=== PATIENT | male | born 1930 | race Caucasian/White ===

== ENCOUNTER 2016-12-31 03:42 | Inpatient (IN) | payer OTHER ==
[~2016-12-31] VITALS: Ht 167.6 cm; Wt 74.8 kg
--- NOTE | 2016-12-31 03:46 | ED CARDIAC/CP/PALPITATIONS ---
History of Present Illness General Chief Complaint: Chest Pain Stated Complaint: BIBA CP Source: patient, family Exam Limitations: no limitations Vital Signs & Intake/Output Vital Signs & Intake/Output Vital Signs Date Time Temp Pulse Resp B/P B/P Pulse O2 O2 Flow FiO2 Mean Ox Delivery Rate 12/317 69 18 125/65 98 Nasal 2.0L Cannula 12/31 413 Room Air 12/31 0345 96.6 74 18 161/74 96 Room Air Allergies Uncoded Allergies: Allergy Other NKA Reconcile Medications Aspirin (Aspirin*) 81 MG TAB.CHEW 1 TAB PO DAILY HEART (Reported) Lovastatin 40 MG TABLET 1 TAB PO DAILY CHOLESTEROL (Reported) with food Triage Nurses Notes Reviewed? yes Onset: Abrupt Duration: hour(s):, waxing and waning Timing: recent history Quality/Severity: moderate Location: central Radiation: no radiation Activities at Onset: sleep Prior Chest Pain/Card Workup: no prior chest pain Modifying Factors: Improves With: nitroglycerin, rest. Nitro Today/Relief: 0.4 mg x 1, provided by EMS Aspirin Today: 81 mg x 4, provided at home Associated Symptoms: chest pain HPI: 86-year-old gentleman history of hypertension, and prior good health presents with 1 hour history of substernal chest pain which she describes as being 7 out of 10, nonradiating, without diaphoresis or syncopal type symptoms. He notes, "I sat there and the pain felt different from anything I've ever felt before. I felt like something was wrong so I called my family." He took 4 baby aspirins prior to the ambulance arriving. The medics share that he received one spray of nitroglycerin which reduced his pain from a 7 out of 10 to a 5 out of 10. Past History Travel History Traveled to [place] past 21 day No Medical History Any Pertinent Medical History? see below for history Cardiovascular: NONE, hypertension Pneumonia Vaccine: 08/28/05 Influenza Vaccine: 05/28/11 Surgical History Surgical History: none Psychosocial History What is your primary language Rwandan Tobacco Use: Quit >30 days ago ETOH Use: denies use Family History Hx Contributory? No Review of Systems Review of Systems Constitutional: Reports: no symptoms. EENTM: Reports: no symptoms. Respiratory: Reports: no symptoms. Cardiovascular: Reports: no symptoms. GI: Reports: no symptoms. Genitourinary: Reports: no symptoms. Musculoskeletal: Reports: no symptoms. Skin: Reports: no symptoms. Neurological/Psychological: Reports: no symptoms. Hematologic/Endocrine: Reports: no symptoms. Immunologic/Allergic: Reports: no symptoms. All Other Systems: Reviewed and Negative Physical Exam Physical Exam General Appearance: well developed/nourished, mild distress Head: atraumatic, normal appearance Eyes: Bilateral: normal appearance. Ears, Nose, Throat: normal pharynx, normal ENT inspection Neck: normal inspection, supple, full range of motion Respiratory: normal breath sounds, chest non-tender, no respiratory distress, quiet respiration, lungs clear Cardiovascular: regular rate/rhythm, edema Gastrointestinal: normal bowel sounds, soft, non-tender, no organomegaly Rectal: normal exam, normal rectal tone, heme negative stool Back: normal inspection, normal range of motion Extremities: normal inspection, normal capillary refill, normal range of motion, no edema Neurologic/Psych: no motor/sensory deficits, awake, alert, oriented x 3 Skin: intact, normal color, warm/dry Core Measures ACS in differential dx? No Severe Sepsis Present: No Septic Shock Present: No Progress Differential Diagnosis: AMI, unstable angina vs other. Plan of Care: Orders Procedure Date/time Status D-DIMER 12/31 409 Active EKG 12/31 350 Active TROPONIN LEVEL 12/31 345 Complete PARTIAL THROMBOPLASTIN TIME 12/31 345 Active PROTHROMBIN TIME 12/31 345 Active COMPREHENSIVE METABOLIC PANEL 12/31 345 Complete CBC WITHOUT DIFFERENTIAL 12/31 345 Complete B-TYPE NATRIURETIC PEP (BNP) 12/31 345 Complete Current Medications Sig/Parviz Start time Last Medication Dose Stop Time Status Admin Aspirin 325 MG ONCE ONE 12/31 529 UNVr (Aspirin) 12/31 530 Clopidogrel Bisulfate 300 MG ONCE ONE 12/31 529 UNVr (Plavix) 12/31 530 Heparin Sodium 25,000 UNIT Q24H 12/31 529 UNVr (Porcine) (Heparin) Sodium Chloride 500 ML Heparin Sodium 4,000 UNIT ONCE ONE 12/31 529 UNVr (Porcine) 12/31 530 (Heparin Bolus) Laboratory Tests 12/31/16 0410: Anion Gap 14, Estimated GFR > 60, BUN/Creatinine Ratio 15.6, Glucose 113 H, Calcium 9.0, Total Bilirubin 0.6, AST 17, ALT 35, Alkaline Phosphatase 65, Troponin I 0.11 *H, Byy-L-Bsneoanoiky Pept 642 H, Total Protein 6.6, Albumin 4.1, Globulin 2.5, Albumin/Globulin Ratio 1.6, PT 11.3, INR 1.08, APTT 35, D- Dimer Pending, CBC w Diff NO MAN DIFF REQ, RBC 5.41, MCV 87.1, MCH 28.9, RDW 13.4, MPV 9.7, Gran % 66.7, Lymphocytes % 22.1, Monocytes % 7.2, Eosinophils % 3.0, Basophils % 1.0, Absolute Granulocytes 4.0, Absolute Lymphocytes 1.3, Absolute Monocytes 0.4, Absolute Eosinophils 0.2, Absolute Basophils 0.1, PUBS MCHC 33.1 12/31/16 0352: D-Dimer Cancelled Diagnostic Imaging: Viewed by Me: Radiology Read. Discussed w/RAD: Radiology Read. CXR Impression: atelectasis vs infiltrate... full report below. Initial ED EKG: RBBB, no acute changes Comments: PATIENT: PATRICIA TRAORE PRESENT AGE: 86 PATIENT ACCOUNT NO: [id number] : 31 LOCATION: [facility] ORDERING PHYSICIAN: MEDHAT CAMPOS MD SERVICE DATE: 12/31/16 EXAM TYPE: RAD - XRY-PORTABLE CHEST XRAY EXAMINATION: XR PORTABLE CHEST CLINICAL INFORMATION: Chest pain COMPARISON: 07/31/2015 TECHNIQUE: Portable frontal view of the chest was obtained. FINDINGS: Right hemidiaphragm elevation and volume loss in the right hemithorax is again demonstrated. Right basilar opacification appears increased from prior. Suture lines are noted in the mid right hemithorax. There is mild hazy opacity at the left lung base. No pneumothorax is seen. No definite pleural effusion. Cardiac size appears within normal limits for technique. Calcification is present at the aortic arch. No acute osseous findings are seen. IMPRESSION: Redemonstrated volume loss in the right hemithorax. Right basilar opacification appears increased compared to prior and may reflect atelectasis or potentially developing consolidation. Mild hazy left basilar opacity is also noted. DICTATED BY: BOB GARCIA MD DATE/TIME DICTATED:12/31/16457 BUTTER MELTER:MISA DATE/TIME TRANSCRIBED:12/31/16457 CONFIDENTIAL, DO NOT COPY WITHOUT APPROPRIATE AUTHORIZATION. <Electronically signed in Other Vendor System> SIGNED BY: BOB GARCIA MD 12/31/16 0504 Departure Departure Disposition: STILL A PATIENT Condition: Stable Clinical Impression Primary Impression: Elevated troponin Referrals: PEDRO ALEXANDER MD (PCP/Family) Departure Forms: Customer Survey General Discharge Information Admission Note Spoke With: BARBARA VILLANUEVA MD Documentation of Exam: Documentation of any treatments & extenuating circumstances including Concerns Regarding Discharge (functional status, medication knowledge or non-compliance, living conditions, etc.) that warrant an admission rather than observation: pt with elevated troponin... now chest pain free after nitro... pt merits admission, possible cath. pt stable for tele Critical Care Note Critical Care Note Critical Care Time: 30-74 min
--- NOTE | 2016-12-31 03:54 | NUR ---
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 PT DENIES SOB, DENIES DIAPHORESIS. STATES PAIN RADIATES TO L ARM. PT REPORTS 7/10 CP THAT WAS RELIEVED TO 4/10 WITH 325MG ASA AND 1 SL NITRO. PT ALSO REPORTS ?MS A FEW YEARS BACK PER PCP. AT BEDSIDE FOR EVAL.
--- NOTE | 2016-12-31 03:58 | NUR ---
NTG SL GIVEN.
--- NOTE | 2016-12-31 04:11 | NUR ---
LABS SENT (1SST,1LAV,1BLUE)
[2016-12-31] MEDS ORDERED: LOVASTATIN40 M1 PO (04:12)
[2016-12-31] MEDS ORDERED: ASPIRIN81 M4 PO (04:13)
--- NOTE | 2016-12-31 04:17 | NUR ---
PT DENIES ANY CP AFTER 1 SL NITRO. BP 125/65. MD CAMPOS AWARE.
[2016-12-31 04:22] LABS: ABSOLUTE BASOPHIL COUNT 0.1 /CUMM (0.0-0.2); ABSOLUTE EOSINOPHIL COUNT 0.2 /CUMM (0.0-0.7); ABSOLUTE LYMPH COUNT 1.3 /CUMM (1.2-3.4); ABSOLUTE MONOCYTE COUNT 0.4 /CUMM (0.10-0.60); GRANULOCYTE % 66.7 % (42.2-75.2); HEMATOCRIT 47.1 % (42-52); MEAN CORPUSCULAR HGB 28.9 PG (27.0-31.0); MEAN CORPUSCULAR HGB CONC 33.1 G/DL (33.0-37.0); MEAN CORPUSCULAR VOLUME 87.1 FL (80.0-94.0); MEAN PLATELET VOLUME 9.7 FL (7.4-10.4); PLATELET COUNT 129 /CUMM (130-400); RBC DISTRIBUTION WIDTH 13.4 % (11.5-14.5); RED BLOOD CELL CT 5.41 /CUMM (4.70-6.10); WHITE BLOOD CELL COUNT 6.1 /CUMM (4.8-10.8)
[2016-12-31 04:31] LABS: PT 11.3 SEC (9.4-12.5); PTT 35 SEC (25-37)
--- NOTE | 2016-12-31 04:59 | NUR ---
CRITICAL TEST RESULTS [id number] PATRICIA TRAORE 86 M TESTS AND RESULTS: TROP = 0.11 Results received and read back by: CHRISTIE MADDOX Results received date and time: 12/31/16 0459 The following provider was notified of the results, and read the results back: DR CAMPOS Notified date and time: 12/31/16 at 0500
--- NOTE | 2016-12-31 05:04 | RADIOLOGY REPORT ---
EXAMINATION: XR PORTABLE CHEST CLINICAL INFORMATION: Chest pain COMPARISON: 07/31/2015 TECHNIQUE: Portable frontal view of the chest was obtained. FINDINGS: Right hemidiaphragm elevation and volume loss in the right hemithorax is again demonstrated. Right basilar opacification appears increased from prior. Suture lines are noted in the mid right hemithorax. There is mild hazy opacity at the left lung base. No pneumothorax is seen. No definite pleural effusion. Cardiac size appears within normal limits for technique. Calcification is present at the aortic arch. No acute osseous findings are seen. IMPRESSION: Redemonstrated volume loss in the right hemithorax. Right basilar opacification appears increased compared to prior and may reflect atelectasis or potentially developing consolidation. Mild hazy left basilar opacity is also noted.
--- NOTE | 2016-12-31 05:54 | NUR ---
PT MEDICATED WITH ASPIRIN,PLAVIX AND HEPARIN GTT INITIATED PER EMAR. RECTAL EXAM DONE BY MD MEMBRENO GUAIC NEGATIVE.
--- NOTE | 2016-12-31 06:26 | NUR ---
HOUSE STAFF AT BEDSIDE TO JEZ
--- NOTE | 2016-12-31 06:32 | NUR ---
PT C/O NAUSEA, MEDICATED WITH IV ZOFRAN PER EMAR. NO VOMITING.
--- NOTE | 2016-12-31 06:36 | History & Physical ---
JAZMIN MAGALLON,[facility] 12/31/16 0635: General Information and HPI MD Statement: I have seen and personally examined PATRICIA TRAORE and documented this H&P. The patient is a 86 year old M who presented with a patient stated chief complaint of [chest pain]. Source of Information: patient, family Exam Limitations: no limitations History of Present Illness: Mr. Traore is 86 year old male with past medical history significant for hyperlipidemia, GERD, lung nodule s/p partial lobectomy with chief complaint of chest pain. Patient reported that around 2 AM this morning he woke up with retrosternal pressure pain that is 10/10, radiate to left arm, associated with shortness of breath, denied diaphoresis, palpitation, nausea, lightheadedness. Patient instantly called his son and was brought to ED by ambulance for evaluation. Patient took 4 tabs of aspirin 81 mg prior to disposition. History of taking lovastatin 40 mg for almost 2 months, as prescribed by his primary care physician after last annual physical. Patient denied any recent illness, cough, palpitation, nasal congestion, abdominal pain, nausea or vomiting, diarrhea or constipation, dysuria. Patient has no recent hospitalization. Patient is a former smoker, quit 50 years ago. Allergies/Medications Home Med list Aspirin (Aspirin*) 81 MG TAB.CHEW 1 TAB PO DAILY HEART (Reported) Lovastatin 40 MG TABLET 1 TAB PO DAILY CHOLESTEROL (Reported) with food Past History Travel History Traveled to [place] past 21 day No Medical History Cardiovascular: NONE, hypertension Surgical History Surgical History: none Past Family/Social History Psychosocial History ETOH Use: denies use Review of Systems Review of Systems Constitutional: Reports: see HPI. Exam & Diagnostic Data Last 24 Hrs of Vital Signs/I&O Vital Signs Date Time Temp Pulse Resp B/P B/P Pulse O2 O2 Flow FiO2 Mean Ox Delivery Rate 12/31 0417 69 18 125/65 98 Nasal 2.0L Cannula 12/31 0414 Room Air 12/31 0345 96.6 74 18 161/74 96 Room Air Intake & Output 12/31 0800 12/31 0000 12/30 1600 Intake Total 0 Output Total Balance 0 Intake, Oral 0 Patient 74.843 kg Weight Physical Exam General Appearance Alert, Oriented X3, Cooperative, No Acute Distress Skin No Rashes, No Breakdown, No Significant Lesion Skin Temp/Moisture Exam: Warm/Dry HEENT Atraumatic, PERRLA, EOMI, Mucous Membr. moist/pink Neck Supple, No JVD Lymphatic no cervical lymphadenopathy Cardiovascular Regular Rate, Normal S1, Normal S2, systolic murmur 3/5 with maximum intensity at RIS , ectopic beat Lungs Clear to Auscultation, Normal Air Movement Abdomen Normal Bowel Sounds, Soft, No Tenderness Neurological Normal Gait, Normal Speech, Strength at 5/5 X4 Ext, Normal Tone, Sensation Intact, Cranial Nerves 3-12 NL, Reflexes 2+ Extremities No Clubbing, No Cyanosis, No Edema, Normal Pulses Assessment/Plan Assessment: Mr. Traore is 86 year old male with past medical history significant for hyperlipidemia, GERD, lung nodule s/p partial lobectomy with chief complaint of chest pain. On admission Vital signs temperature 96.6, heart rate 74, blood pressure 161/74, RR 18, saturating 96% on room air labs WBC 6.1, platelet 129, H&H 15.6/47.1, sodium 142, potassium 3.9, glucose 113, troponin 0.11, proBNP 642, d-dimer negative CXR IMPRESSION: Redemonstrated volume loss in the right hemithorax. Right basilar opacification appears increased compared to prior and may reflect atelectasis or potentially developing consolidation. Mild hazy left basilar opacity is also noted. EKG rate 70, RBBB, nonspecific ST/T changes, QTc 475 Problem list #CAD Elevated troponin, nonspecific ST/T changes and EKG #Hyperlipidemia Plan -Admit to telemetry for close monitoring -Serial troponin and EKG -Nitroglycerin As needed for chest pain -Continue aspirin -Continue heparin drip -Continue atorvastatin 80 mg daily -Nothing by mouth for possible cath today -DVT prophylaxis heparin drip -Code full As Ranked By This Provider Problem List: 1. Elevated troponin Core Measures/Miscellaneous Acute Coronary Syndrome ACS Diagnosis: No Cerebrovascular Accident CVA/TIA Diagnosis: No Congestive Heart Failure CHF Diagnosis: No Venous Thromboembolism VTE Risk Factors: Age > 40 [facility] prophylaxis d/t: No contraindications No VTE Pharm Prophylaxis d/t: No contraindications VTE Diagnosis: No VTE Type: NONE VTE Confirmed by (Test): NONE Severe Sepsis Severe Sepsis Present: No Septic Shock Septic Shock Present: No Miscellaneous Documentation Attending Case Discussed With: RICH MAGALLON PhD,JOCELYN Mcfadden Primary Care Physician: PEDRO ALEXANDER MD Patient sees these Specialists PCP Level of Patient Care: Telemetry JAK ORDAZ 12/31/16 0707: Resident Review Statement Resident Statement: examined this patient, discussed with supply chain intern, agreed with supply chain intern, amended to note Other Findings: 86 year old man with PMh of HLP, GERD, hip replacement ,abnormal EKG,lung nodule s/p partial lobectomy came to ED with cc of chest pain. He reported that at 2 AM this morning he woke up with severe mediastinal pressure-like chest pain at least 8 out of 10 which lasted more than 30 minutes associated with mild shortness of breath but no nausea or vomiting or dizziness or palpitations, radiating to the left arm He called his son and he came to the hospital. patient reports had the mild similar episode about couple of days ago which spontaneously resolved. Denies any recent fever, chills, cough, abdominal pain, nausea, vomiting. He doesn't have any history of [place]/stroke. Vital signs on admission were stable. he was alert and oriented, lungs were clear, atraumatic head, PERRLA, S1-S2 normal with 3/6murmur possibly , abdominal exam unremarkable, no lower extremity edema CXR was unremarkable Labs are notable for platelets of 129, troponin of 0.11 EKG shows sinus rhythm, 70, QTC 475, RBBB, nonspecific ST-T changes(ST depressions in V2 and V3) Assessment and plan #NSTEMI -Admit to telemetry -NPO for possible cardiac cath -EKG and troponin 3 -IV heparin -Patient received aspirin 325 and Plavix loading dose -Continue aspirin for now -Start high dose statin therapy -Sublingual nitroglycerin for chest pain -Gentle IV hydration -Echocardiogram in the morning -Cardiology discussed with Dr. De Los Santos/ DR MALDONADO WILL SEE THE PATIENT -low dose metoprolol Full code for now (patient has a living will which says DNR), Tylenol and nitroglycerin for pain, DVT prophylaxis mechanical and IV heparin,NPO ALBINO MALDONADO MD 12/31/16 1100: General Information and HPI Allergies/Medications Allergies: Coded Allergies: No Known Allergies (12/31/16) Past Family/Social History Family History Relations & Conditions if any SISTER Myocardial infarction Attending MD Review Statement Attending Statement Attending MD Statement: examined this patient, discuss w/resident/PA/NUCLEAR MEDICAL TECHNOLOGIST, agreed w/resident/PA/NUCLEAR MEDICAL TECHNOLOGIST, discussed with family, reviewed EMR data (avail), discussed with nursing, reviewed images, amended to note Attending Assessment/Plan: The patient is an 86-year-old male with history of hyperlipidemia, GERD, and partial lobectomy who is admitted with non-ST elevation myocardial infarctions. The patient was feeling well when he went to sleep at midnight last night. At 2 :00 AM, he awoke with substernal chest pressure which was a 10 out of 10, radiating to the neck at times. EMS was called. He was given several nitroglycerin glycerin and handles with partial improvement in the chest discomfort. Upon arrival in the emergency department the discomfort began to get worse and he was treated with a second sublingual nitroglycerin motion. His discomfort subsequently resolved, and he is now pain-free. He reports that he had 3 or 4 other recent episodes of chest discomfort for which she did not seek medical attention. He has never seen a instrument maintenance supervisor, however he requests to follow up with his son's instrument maintenance supervisor, Dr. Thapa in [place]. Review of systems: No fever. No chills. No rash. No tremor. No melena. All other systems were reviewed, and were noted to be negative. Vital Signs Date Time Temp Pulse Resp B/P B/P Pulse O2 O2 Flow FiO2 Mean Ox Delivery Rate 12/31 1044 64 144/70 / 0850 97.8 70 14 144/70 97 Room Air / 0706 97.0 80 18 133/75 97 Room Air / 0417 69 18 125/65 98 Nasal 2.0L Cannula 12/31 0414 Room Air / 0345 96.6 74 18 161/74 96 Room Air Physical examination: Gen: The patient is in no acute distress HEENT: Normal nose, ears, and oropharynx. Pupils equal bilaterally. Conjunctiva normal. Neck: Supple with no JVD, no masses, and no thyromegaly Lungs: Clear to auscultation with normal respiratory effort Heart: RRR, S1, S2, no murmurs. No peripheral edema, 2+ pulses in the lower extremities bilaterally Abdomen: Soft, nontender, no masses. No hepatomegaly. No splenomegaly Extremities: No clubbing or cyanosis. Normal muscle strength in the upper and lower extremities Skin: Normal skin turgor with no skin ulcers or lesions noted. Neuro: Cranial nerves intact. Sensation intact Psych: Alert and oriented 3 with appropriate affect Laboratory Tests 12/31 12/31 12/31 1000 0410 0352 Chemistry Sodium (137 - 145 mmol/L) 142 Potassium (3.5 - 5.1 mmol/L) 3.9 Chloride (98 - 107 mmol/L) 105 Carbon Dioxide (22 - 30 mmol/L) 23 Anion Gap (5 - 16) 14 BUN (9 - 20 mg/dL) 14 Creatinine (0.7 - 1.2 mg/dL) 0.9 Estimated GFR (>60 ml/min) > 60 BUN/Creatinine Ratio (7 - 25 %) 15.6 Glucose (65 - 99 mg/dL) 113 H Calcium (8.4 - 10.2 mg/dL) 9.0 Magnesium (1.6 - 2.3 mg/dL) 2.0 Total Bilirubin (0.2 - 1.3 mg/dL) 0.6 AST (17 - 59 U/L) 17 ALT (21 - 72 U/L) 35 Alkaline Phosphatase (< 127 U/L) 65 Troponin I (<0.11 ng/ml) 4.99 *H 0.11 *H Fvi-C-Yxrhyabkqdi Pept (<125 pg/mL) 642 H Total Protein (6.3 - 8.2 g/dL) 6.6 Albumin (3.5 - 5.0 g/dL) 4.1 Globulin (1.9 - 4.2 gm/dL) 2.5 Albumin/Globulin Ratio (1.1 - 2.2 %) 1.6 Triglycerides (<150 mg/dL) 67 Cholesterol (< 200 MG/DL) 134 LDL Cholesterol, Calc (65 - 129 mg/dL) 62 L HDL Cholesterol (40 - 60 mg/dL) 59 Cholesterol/HDL Ratio (0.00 - 4.88 %) 2 Coagulation PT (9.4 - 12.5 SEC) 11.3 INR (0.90 - 1.17) 1.08 APTT (25 - 37 SEC) 35 D-Dimer (70 - 232 ng/ml) < 200 Cancelled Hematology CBC w Diff NO MAN DIFF REQ WBC (4.8 - 10.8 /CUMM) 6.1 RBC (4.70 - 6.10 /CUMM) 5.41 Hgb (14.0 - 18.0 G/DL) 15.6 Hct (42 - 52 %) 47.1 MCV (80.0 - 94.0 FL) 87.1 MCH (27.0 - 31.0 PG) 28.9 RDW (11.5 - 14.5 %) 13.4 Plt Count (130 - 400 /CUMM) 129 L MPV (7.4 - 10.4 FL) 9.7 Gran % (42.2 - 75.2 %) 66.7 Lymphocytes % (20.5 - 51.1 %) 22.1 Monocytes % (1.7 - 9.3 %) 7.2 Eosinophils % (0 - 5 %) 3.0 Basophils % (0.0 - 2.0 %) 1.0 Absolute Granulocytes (1.4 - 6.5 /CUMM) 4.0 Absolute Lymphocytes (1.2 - 3.4 /CUMM) 1.3 Absolute Monocytes (0.10 - 0.60 /CUMM) 0.4 Absolute Eosinophils (0.0 - 0.7 /CUMM) 0.2 Absolute Basophils (0.0 - 0.2 /CUMM) 0.1 PUBS MCHC (33.0 - 37.0 G/DL) 33.1 05/06 0200 Chemistry Troponin I Cancelled Chest x-ray: Redemonstrated volume loss in the right hemithorax. Right basilar opacification appears increased compared to prior and may reflect atelectasis or potentially developing consolidation. Mild hazy left basilar opacity is also noted. EKG tracing is independently reviewed, and reveals normal sinus rhythm at 63, premature atrial complex, right bundle-branch block Echocardiogram: Moderate concentric left ventricular hypertrophy. Normal left ventricular ejection fraction visually estimated at >65 No obvious regional wall motion abnormalities. Abnormal relaxation filling pattern of the left ventricle for age (stage 1 diastolic dysfunction). The left atrium is normal in size. There is mild thickening of the mitral valve leaflets and mild calcification of the mitral annulus posteriorly. There is mild mitral regurgitation. Diffuse thickening of the aortic valve cusps with reduced excursion. Mild aortic stenosis. Mild aortic stenosis. Pulmonary artery systolic pressure is normal. Assessment: 1. Acute NSTEMI 2. Hyperlipidemia Plan: * IV heparin per protocol * Increase metoprolol to 12.5 mg po bid * Aspirin 325 mg po x 1 and then 81 mg daily * Brilinta 180 mg po x 1 followed by 90 mg po bid * Discontinue clopidogrel * Echocardiogram * Transfer for cardiac catheterization Monday. The patient's family requests that he be transferred to Dr. Thapa at [facility]
--- NOTE | 2016-12-31 06:43 | NUR ---
PER SUPERVISIOR PT CAN GO TO ICU OVERFLOW AFTER 0700.
--- NOTE | 2016-12-31 06:53 | NUR ---
PHARMACY CALLED FOR MEDICATION. PER PHARMACIST MER HE WILL BRING UP MED.
--- NOTE | 2016-12-31 06:54 | NUR ---
PT BED ASSIGNMENT 105
--- NOTE | 2016-12-31 07:35 | NUR ---
REPORT GIVEN TO [facility]ILLY [facility]OPE[facility] ICU. PT WILL BE TELE OVERFLOW. FILLER SHREDDING MACHINE LOADER WILL CALL DOWN WHEN BED IS READY.
[2016-12-31 08:50] VITALS: BP 144/70
--- NOTE | 2016-12-31 08:50 | Event Note ---
Event Note Event Note: MERARY snuff packing machine operator [facility]
--- NOTE | 2016-12-31 11:31 | Patient Discharge Instructions ---
Discharge Instructions General Discharge Information You were seen/treated for: NSTEMI Special Instructions: Patient is being transfered to cardiac cath. 1. Please follow-up with your regular doctor after discharge 2. Please follow-up with your real estate salesperson after discharge Diet Recommended Diet: Heart Healthy Activity Full Activity/No Limits: No Acute Coronary Syndrome Inclusion Criteria At DC or during hospital stay patient has or had the following: ACS DIAGNOSIS Yes Discharge Core Measures Meds if any: Prescribed or Continued at Discharge Aspirin Yes Beta-Kash Yes Statin Yes Meds if any: NOT Prescribed or Continued at Discharge Congestive Heart Failure Inclusion Criteria At DC or during hospital stay patient has or had the following: CHF DIAGNOSIS No Discharge Core Measures Meds if any: Prescribed or Continued at Discharge Meds if any: NOT Prescribed or Continued at Discharge Cerebrovascular accident Inclusion Criteria At DC or during hospital stay patient has or had the following: CVA/TIA Diagnosis No Discharge Core Measures Meds if any: Prescribed or Continued at Discharge Meds if any: NOT Prescribed or Continued at Discharge Venous thromboembolism Inclusion Criteria VTE Diagnosis No VTE Type NONE VTE Confirmed by (Test) NONE Discharge Core Measures - Per Current guidelines, there needs to be overlap - treatment for the first 5 days of Warfarin therapy. - If discharged on Warfarin prior to 5 days of - overlap therapy, the patient will need to be - assessed for post discharge needs including - *Post discharge parental anticoagulation - *Warfarin and/or parental anticoagulation education - *Follow up date to check INR post discharge At least 5 days overlap therapy as Inpatient No Meds if any: Prescribed or Continued at Discharge Note: Overlap Therapy is Warfarin and Anticoagulant Meds if any: NOT Prescribed or Continued at Discharge
--- NOTE | 2016-12-31 11:32 | Discharge Summary ---
See Addendum Visit Information Visit Dates Admission Date: 12/31/16 Discharge Date: 12/31/16 Hospital Course Course Attending Physician: RICH MAGALLON PhD,JOCELYN Mcfadden Primary Care Physician: CATHERINE MAGALLON,[facility] Course: Patient is 86 year old man with PMH of HLD, GERD, hip replacement, lung nodule s /p partial lobectomy was brought to ED with chief complain of Chest pain. He reported that at 2 AM on 12/31/16 he woke up with severe mediastinal pressure-like chest pain at least 8 out of 10 which lasted more than 30 minutes associated with mild shortness of breath but no nausea or vomiting or dizziness or palpitations, radiating to the left arm He called his son and he came to the hospital. Patient reports had the mild similar episode about couple of days ago which spontaneously resolved. Denies any recent fever, chills, cough, abdominal pain, nausea, vomiting. He doesn't have any history of [place]/stroke. Vital signs on admission were stable. He was alert and oriented Lungs were CTA Atraumatic head, PERRLA, S1-S2 normal with 3/6murmur possibly , Abdominal exam unremarkable, no lower extremity edema, peripheral pulses intact CXR was unremarkable Labs are notable for platelets of 129, troponin of 0.11 later 4.99 EKG shows sinus rhythm, 70, QTC 475, RBBB, nonspecific ST-T changes(ST depressions in V2 and V3) Pateint was admitted to telemetry floor for NSTEMI. Patient got loading dose of aspirin, and was started on Metoprolol, high dose statin and Heprin drip. Serial troponins and ekg was ordered. Billing Supervisor Dr. Baker was on board. Patient was continued on Sublingual nitroglycerine for CP. Patient was continued on Heprin drip, last troponin was 7.73 and patient is goinf for cardiac cath in [place] with Dr. Osman. Dvt ppx IV heprin Patient is Full code Allergies: Coded Allergies: No Known Allergies (12/31/16) Disposition Summary Disposition Principal Diagnosis: NSTEMI Additional Diagnosis: As above Discharge Disposition: other general hospital Discharge Instructions General Discharge Information Code Status: Full Code Patient's Diet: heart healthy but npo before cath Patient's Activity: as tolerated Follow-Up Instructions/Appts: Patient will be ransfered for cardiac cath Medications at Discharge Discharge Medications: Continue taking these medications: Lovastatin (Lovastatin) 40 MG TABLET 1 Tablet ORAL DAILY Qty = 90 Instructions: with food Aspirin (Aspirin*) 81 MG TAB.CHEW 1 Tablet ORAL DAILY Start taking the following new medications: Nitroglycerin (Nitrostat) 0.3 MG TAB.SUBL 0.4 Milligram SUBLINGUAL EVERY 5 MINUTES X 3 DOSES as needed for CHEST PAIN Qty = 30 No Refills Metoprolol Tartrate (Metoprolol Tartrate) 25 MG TABLET 12.5 Milligram ORAL TWICE DAILY Qty = 30 No Refills Ticagrelor (Brilinta) 90 MG TABLET 1 Tablet ORAL TWICE DAILY Qty = 30 No Refills Heparin (Heparin-1/2NS 25,000 Units/500) 25,000 UNIT/500 ML (50 UNIT/ML) IV.SOLN 25,000 Units INTRAVEN CONTINOUS Qty = 1 No Refills Instructions: HELD FOR CATH Copies To: ERICA MAGALLON,ALBINO
[2016-12-31 13:33] LABS: PTT 103 SEC (25-37)
--- NOTE | 2016-12-31 15:57 | NUR ---
LATE ENTRY ADMISSION NOTE-PATIENT ARRIVED TO ROOM 105 AT 0850, HEPARIN GTT INFUSING AT 12 UNITS/KG/HR OR 18 MLS/HR VIA #20 LW,1BAG OF BELONGINGS CONSISTING OF JACKET, SLIPPERS, SLEEP PANTS, AND SHIRT, GLASSES ON PATIENT, UPPER AND LOWER DENTURES IN PATIENTS MOUTH, PATIENT PLACED ON ICU BED AND TELE MONITOR, DENIES CP, NAUSEA, A&OX3,AFEBRILE,NEWMAN, NSR 70, BBB,PVC,PAC, BP 144/70, POSITIVE PULSES, RA 97% CLEAR NO SOB, ABD. SOFT + B.S, NPO CHANGED TO H/H DIET AFTER DR. MAR CONSULT, CLEAR YELLOW URINE VOIDS IN URINAL LFA # 20 IV PLACED, PRE HOSPITAL AC IV NOT PATENT REMOVED, NS STARTED AT 50MLS/HR X 1 BAG PER ORDER, 1000 REPEAT TROPONIN 4.99, NEXT TROPONIN DUE AT 1600 1200 PTT 103 ADJUSTED HEPARIN PER PROTOCOL TO 8UNITS/KG/HR OR 12 MLS/HR NEXT PTT DUE AT 2030,
[2016-12-31 16:00] VITALS: BP 150/70
[2016-12-31 23:07] LABS: PTT 45 SEC (25-37)
--- NOTE | 2016-12-31 23:12 | NUR ---
PT REMAINS ALERT AND ORIENTED. VSS STATES HIS PAIN IS A 0. OFFERED NO COMPLAINTS. FAMILY AT [facility] PROVIDING SUPPORT. OF NOTE, PT'S FAMILY WANTS PT TO BE CATHED AT [facility] ON MONDAY. DR. JEREZ IS PHYSICIAN. DR SALAZAR IS PEN TESTER PHYSICIAN AT [facility]. HE WILL BE THE RECEIVING MD. SHOE CUTTER ONOFRE HAD PT SIGN TRANSFER FORMS. REPORT AND ABOVE INFORMATION GIVEN TO JASON.
[2017-01-01] VITALS: BP 114/70
--- NOTE | 2017-01-01 04:32 | NUR ---
PT DID NOT C/O CHEST PAIN THE WHOLE NIGHT. SLEPT VERY LITTLE PT STATED, HEPARIN GTT CONTINUED. NSR 60'S-70'S.
[2017-01-01 04:53] LABS: ABSOLUTE BASOPHIL COUNT 0.1 /CUMM (0.0-0.2); ABSOLUTE EOSINOPHIL COUNT 0.2 /CUMM (0.0-0.7); ABSOLUTE GRANULOCYTE CT 3.4 /CUMM (1.4-6.5); ABSOLUTE MONOCYTE COUNT 0.5 /CUMM (0.10-0.60); BASOPHIL % 1.1 % (0.0-2.0); EOSINOPHIL % 4.3 % (0-5); GRANULOCYTE % 65.8 % (42.2-75.2); HEMATOCRIT 44.5 % (42-52); MEAN CORPUSCULAR HGB 28.8 PG (27.0-31.0); MEAN CORPUSCULAR HGB CONC 32.8 G/DL (33.0-37.0); MEAN CORPUSCULAR VOLUME 87.9 FL (80.0-94.0); MEAN PLATELET VOLUME 9.9 FL (7.4-10.4); PLATELET COUNT 115 /CUMM (130-400); RBC DISTRIBUTION WIDTH 13.2 % (11.5-14.5); RED BLOOD CELL CT 5.06 /CUMM (4.70-6.10); WHITE BLOOD CELL COUNT 5.2 /CUMM (4.8-10.8)
[2017-01-01 05:04] LABS: PTT 51 SEC (25-37)
[2017-01-01 08:00] VITALS: BP 122/64
--- NOTE | 2017-01-01 08:01 | PN- Housestaff ---
Subjective Follow-up For: NSTEMI Tele-Events Since Last Visit: No Events Subjective: Mr Gunderson was seen and examined this morning. He is resting comfortably on the chair beside his bed. Patient states that he is currently no pain. He has been ambulating over the course of the morning with no symptomatic manifestations. He is currently awaiting visitation of his family to decide on further transfers for catheterization. He denies any fever, chills, nausea, vomiting. Review of Systems Constitutional: Reports: see HPI. Objective Last 24 Hrs of Vital Signs/I&O Vital Signs Date Time Temp Pulse Resp B/P B/P Pulse O2 O2 Flow FiO2 Mean Ox Delivery Rate 01/01 1001 98.2 69 20 122/64 01/01 0800 98.2 69 20 122/64 96 Room Air 05 0000 95 Room Air 01/01 0000 98.1 68 20 114/70 95 Room Air / 2231 97.6 60 18 132/70 / 1600 97 Room Air Room Air 12/31 1600 97.6 68 16 150/70 97 Room Air Room Air Intake & Output 01/01 1600 01/01 0800 05/ 0000 Intake Total 582 1350 Output Total 650 700 Balance -68 650 Intake, IV 482 750 Intake, Oral 100 600 Number 1 Bowel Movements Output, Urine 650 700 Physical Exam General Appearance: Alert, Oriented X3, Cooperative Lymphatic: Axillary nl Cardiovascular: Regular Rate, Normal S1, Normal S2 Lungs: Clear to Auscultation Abdomen: Normal Bowel Sounds, Soft, No Tenderness Neurological: Normal Gait, Normal Speech, Strength at 5/5 X4 Ext Extremities: No Clubbing, No Cyanosis, No Edema Current Medications: Current Medications Sig/Parviz Start time Last Medication Dose Route Stop Time Status Admin Acetaminophen 650 MG Q6P PRN 12/31 0545 AC PO Aspirin 81 MG DAILY 01/01 1000 AC 01/01 PO 1000 Atorvastatin Calcium 80 MG 1000 01/01 1000 AC PO Atorvastatin Calcium 80 MG 1700 12/31 0545 DC 12/31 PO 0706 Heparin Sodium 2,245 UNIT ONCE ONE 01/01 630 DC (Porcine) IV 01/01 0631 Heparin Sodium 25,000 UNIT Q24H 12/31 0530 AC 01/01 (Porcine) IV 0601 Sodium Chloride 500 ML Metoprolol Tartrate 12.5 MG BID 12/31 2200 AC 01/01 PO 1001 Metoprolol Tartrate 6.25 MG BID 12/31 1000 DC 12/31 PO 1044 Multivitamins 1 TAB DAILY 12/31 1000 AC 01/01 PO 1000 Nitroglycerin 0.4 MG Q 5 MINUTES X 3 DO.. 12/31 0645 AC SL Sodium Chloride 1,000 ML Q20H 12/31 0730 DC 12/31 IV 01/01 0329 0917 Ticagrelor 90 MG BID 01/01 1000 AC 01/01 PO 1000 Ticagrelor 180 MG ONCE ONE 12/31 1415 DC 12/31 PO 12/31 1416 1447 Last 24 Hrs of Lab/Carlitos Results Last 24 Hrs of Labs/Mics: Laboratory Tests 01/01/17 1245: APTT Pending 01/01/17 0415: Anion Gap 8, Estimated GFR > 60, BUN/Creatinine Ratio 11.8, APTT 51 H, CBC w Diff NO MAN DIFF REQ, RBC 5.06, MCV 87.9, MCH 28.8, RDW 13.2, MPV 9.9, Gran % 65.8, Lymphocytes % 18.9 L, Monocytes % 9.9 H, Eosinophils % 4.3, Basophils % 1.1, Absolute Granulocytes 3.4, Absolute Lymphocytes 1.0 L, Absolute Monocytes 0.5, Absolute Eosinophils 0.2, Absolute Basophils 0.1, PUBS MCHC 32.8 L 12/31/16 2200: Troponin I 7.73 *H, APTT 45 H 12/31/16 1700: Troponin I 9.29 *H 12/31/16 1600: Troponin I Cancelled Assessment/Plan Assessment: Mr. Gunderson is 86 year old male with past medical history significant for hyperlipidemia, GERD, lung nodule s/p partial lobectomy with chief complaint of chest pain. On admission Vital signs temperature 96.6, heart rate 74, blood pressure 161/74, RR 18, saturating 96% on room air labs WBC 6.1, platelet 129, H&H 15.6/47.1, sodium 142, potassium 3.9, glucose 113, troponin 0.11, proBNP 642, d-dimer negative EKG rate at the time of admission, 70, RBBB, nonspecific ST/T changes, QTc 475 Problem list #CAD Elevated troponin, nonspecific ST/T changes and EKG #Hyperlipidemia Plan -Continue on telemetry for close monitoring -Serial troponin and EKG, till trend down, last troponin: 7.73 -Awaiting echo results -Nitroglycerin As needed for chest pain -Continue aspirin -Continue heparin drip -Continue atorvastatin 80 mg daily -Nothing by mouth from midnight. -Patient will be transferred to [facility] for catheterization on 01/02/2017. -DVT prophylaxis heparin drip -Code full Problem List: 1. Elevated troponin Pain Ratin Pain Location: No Pain Pain Goal: Remain pain free Pain Plan: Morphine PRN Tomorrow's Labs & Rationales: ICU Bundle
[2017-01-01 13:09] LABS: PTT 70 SEC (25-37)
--- NOTE | 2017-01-01 14:02 | PN- Cardiology ---
Subjective Subjective: The patient reports that he is feeling completely well. No further chest pain since admission. No shortness of breath. No palpitations. No diaphoresis. Objective Vital Signs and I&Os Vital Signs Date Time Temp Pulse Resp B/P B/P Pulse O2 O2 Flow FiO2 Mean Ox Delivery Rate 01/01 1001 98.2 69 20 122/64 / 0800 98.2 69 20 122/64 96 Room Air 05/ 0000 95 Room Air 05/ 0000 98.1 68 20 114/70 95 Room Air / 2231 97.6 60 18 132/70 12/31 1600 97 Room Air Room Air 12/31 1600 97.6 68 16 150/70 97 Room Air Room Air Intake & Output 01/01 1600 01/01 0800 01/01 0000 12/31 1600 12/31 0812/31 0000 Intake Total 582 1350 830 0 Output Total 650 700 800 Balance -68 650 30 0 Intake, IV 482 750 470 Intake, Oral 100 600 360 0 Number 1 0 Bowel Movements Output, Urine 650 700 800 Patient 165 lb 165 lb Weight Physical Exam: Gen: NAD HEENT: normal Lungs: clear to auscultation, normal resp. effort Heart: RRR, S1, S2, no murmurs Abdomen: Soft, nontender, no masses Extremities: No clubbing, cyanosis, or edema. Neuro: Alert and oriented x 3, cranial nerves intact Current Medications: Current Medications Sig/Parviz Start time Last Medication Dose Route Stop Time Status Admin Acetaminophen 650 MG Q6P PRN 12/31 0545 AC PO Aspirin 81 MG DAILY 01/01 1000 AC 01/01 PO 1000 Atorvastatin Calcium 80 MG 1000 01/01 1000 AC PO Atorvastatin Calcium 80 MG 1700 12/31 0545 DC 12/31 PO 0706 Heparin Sodium 2,245 UNIT ONCE ONE 01/01 630 DC (Porcine) IV 01/01 0631 Heparin Sodium 25,000 UNIT Q24H 12/31 0530 AC 01/01 (Porcine) IV 0601 Sodium Chloride 500 ML Metoprolol Tartrate 12.5 MG BID 12/31 2200 AC 01/01 PO 1001 Metoprolol Tartrate 6.25 MG BID 12/31 1000 DC 12/31 PO 1044 Multivitamins 1 TAB DAILY 12/31 1000 AC 01/01 PO 1000 Nitroglycerin 0.4 MG Q 5 MINUTES X 3 DO.. 12/31 0645 AC SL Sodium Chloride 1,000 ML Q20H 12/31 0730 DC 12/31 IV 01/01 0329 0917 Ticagrelor 90 MG BID 01/01 1000 AC 01/01 PO 1000 Ticagrelor 180 MG ONCE ONE 12/31 1415 DC 12/31 PO 12/31 1416 1447 Results Last 48 Hrs of Labs/Mics: Laboratory Tests 01/01/17 1245: APTT Pending 01/01/17 0415: Anion Gap 8, Estimated GFR > 60, BUN/Creatinine Ratio 11.8, APTT 51 H, CBC w Diff NO MAN DIFF REQ, RBC 5.06, MCV 87.9, MCH 28.8, RDW 13.2, MPV 9.9, Gran % 65.8, Lymphocytes % 18.9 L, Monocytes % 9.9 H, Eosinophils % 4.3, Basophils % 1.1, Absolute Granulocytes 3.4, Absolute Lymphocytes 1.0 L, Absolute Monocytes 0.5, Absolute Eosinophils 0.2, Absolute Basophils 0.1, PUBS MCHC 32.8 L 12/31/16 2200: Troponin I 7.73 *H, APTT 45 H 12/31/16 1700: Troponin I 9.29 *H 12/31/16 1600: Troponin I Cancelled 12/31/16 1400: Troponin I Cancelled 12/31/16 1200: APTT 103 *H 12/31/16 1000: Troponin I 4.99 *H 12/31/16 0410: Anion Gap 14, Estimated GFR > 60, BUN/Creatinine Ratio 15.6, Glucose 113 H, Calcium 9.0, Magnesium 2.0, Total Bilirubin 0.6, AST 17, ALT 35, Alkaline Phosphatase 65, Troponin I 0.11 *H, Fwr-[id number] Pept 642 H, Total Protein 6.6, Albumin 4.1, Globulin 2.5, Albumin/Globulin Ratio 1.6, Triglycerides 67, Cholesterol 134, LDL Cholesterol, Calc 62 L, HDL Cholesterol 59, Cholesterol/ HDL Ratio 2, PT 11.3, INR 1.08, APTT 35, D-Dimer < 200, CBC w Diff NO MAN DIFF REQ, RBC 5.41, MCV 87.1, MCH 28.9, RDW 13.4, MPV 9.7, Gran % 66.7, Lymphocytes % 22.1, Monocytes % 7.2, Eosinophils % 3.0, Basophils % 1.0, Absolute Granulocytes 4.0, Absolute Lymphocytes 1.3, Absolute Monocytes 0.4, Absolute Eosinophils 0.2, Absolute Basophils 0.1, PUBS MCHC 33.1 12/31/16 0352: D-Dimer Cancelled 12/31/16 0200: Troponin I Cancelled Microbiology 01/01 0850 UPPER RESP: Surveillance Culture - COMP 12/31 849 GI: Surveillance Culture - COMP Assessment/Plan Assessment/Plan Assessment: 1. Acute non-ST elevation myocardial infarction, now pain-free Plan: * Cardiac catheterization is planned for tomorrow. The patient's family requests that this be done with Dr. Osman at [facility]. I spoke to Dr. Krueger, who will arrange transfer to [facility] tomorrow morning for cardiac catheterization. * Continue current cardiac medications. * Echocardiogram pending. * Nothing by mouth after midnight. Continue telemetry? Yes
[2017-01-01 16:00] VITALS: BP 140/70
[2017-01-01 23:30] VITALS: BP 130/66
[2017-01-02 01:24] LABS: PTT 59 SEC (25-37)
--- NOTE | 2017-01-02 07:19 | ECHOCARDIOGRAM REPORT ---
PATRICIA TRAORE Age: 86 : 1930 Gender: M Exam Date: 01/01/2017 08:24 Exam Location: [facility] Ht (in): 66 Wt (lb): 165 BSA: 1.88 BP: 114 / 70 Ordering Physician: JAK ORDAZ MD Referring Physician: Felipe De Los Santos MD, PhD Technologist: Dulce Zambrano [facility] Room Number: 105 Indications: CHEST PAIN Rhythm: Sinus Technical Quality: good FINDINGS Left Ventricle Normal left ventricular size with mild left ventricular hypertrophy. Normal systolic function with no obvious regional wall motion abnormalities. Diastolic filling pattern is consistent with impaired LV relaxation. The ejection fraction is visually estimated at 60%. Right Ventricle The right ventricle is normal in size and function. Right Atrium The right atrium is normal in size. Left Atrium The left atrium is normal in size. The interatrial septum is intact. Mitral Valve The mitral valve is normal in structure and function. There is mild mitral regurgitation. Aortic Valve Midly thickended and sclerotic aortic valve with mild stenosis. There is mild aortic regurgitation. Tricuspid Valve The tricuspid valve is normal in structure and function. There is mild tricuspid regurgitation. Pulmonary artery systolic pressure is normal. Pulmonic Valve Structurally normal pulmonic valve. There is mild pulmonic regurgitation. Pericardium Normal pericardium without effusion. No pleural effusion. Great Vessels Normal aortic root dimension. The aortic arch and great vessels are well seen and are normal. CONCLUSIONS 1. Normal EF of 60% with impaired LV relaxation. 2. Mild left ventricular hypertrophy. 3. Mild mitral regurgitation. 4. Mild tricuspid regurgitation. 5. Mild aortic stensosis with mild aortic insufficiency. 6. Mild pulmonic insufficiency. Felipe De Los Santos M.D. (Electronically Signed) Final Date: 02 Jan 2017 07:18 MEASUREMENTS (Male / Female) Normal Values 2D ECHO LV Diastolic Diameter PLAX 4.4 cm 4.2 - 5.9 / 3.9 - 5.3 cm LV Systolic Diameter PLAX 2.8 cm 2.1 - 4.0 cm LV Fractional Shortening PLAX 36.4 % 25 - 46 % LV Ejection Fraction 2D Teich 66.3 % IVS Diastolic Thickness 1.4 cm LVPW Diastolic Thickness 1.3 cm LV Relative Wall Thickness 0.6 RV Internal Dim ED PLAX 2.2 cm 1.9 - 3.8 cm LVOT Diameter 1.9 cm Aortic Root Diameter 3.1 cm LA Systolic Diameter LX 4.0 cm 3.0 - 4.0 / 2.7 - 3.8 cm LA Volume 41.0 cm 18 - 58 / 22 - 52 cm Ascending Aorta Diameter 3.3 cm DOPPLER AV Peak Velocity 242.0 cm/s AV Peak Gradient 23.4 mmHg AV Mean Velocity 173.0 cm/s AV Mean Gradient 14.0 mmHg AV Velocity Time Integral 51.5 cm LVOT Peak Velocity 99.3 cm/s LVOT Peak Gradient 3.9 mmHg LVOT Mean Velocity 71.5 cm/s LVOT Mean Gradient 2.0 mmHg LVOT Velocity Time Integral 22.2 cm LVOT Stroke Volume 62.9 cm AV Area Cont Eq vti 1.2 cm AV Area Cont Eq pk 1.2 cm MV Peak Velocity 149.0 cm/s MV Peak Gradient 8.9 mmHg MV Mean Velocity 72.2 cm/s MV Mean Gradient 3.0 mmHg Mitral E Point Velocity 85.9 cm/s Mitral A Point Velocity 125.0 cm/s Mitral E to A Ratio 0.7 MV PHT Velocity 109.0 cm/s MV Deceleration Summit 373.0 cm/s MV Pressure Half Time 87.7 ms MV Area PHT 2.5 cm MV Deceleration Time 232.0 ms TR Peak Velocity 237.0 cm/s TR Peak Gradient 22.5 mmHg Right Atrial Pressure 5.0 mmHg Pulmonary Artery Systolic Pressu 27.5 mmHg Right Ventricular Systolic Press 27.5 mmHg PV Peak Velocity 138.0 cm/s PV Peak Gradient 7.6 mmHg PV Mean Velocity 87.6 cm/s PV Mean Gradient 4.0 mmHg PV Velocity Time Integral 20.5 cm LV E' Lateral Velocity 5.9 cm/s Mitral E to LV E' Lateral Ratio 14.7 LV E' Septal Velocity 6.8 cm/s Mitral E to LV E' Septal Ratio 12.6
[2017-01-02 08:03] VITALS: BP 128/72
--- NOTE | 2017-01-02 08:35 | PN- Cardiology ---
Subjective Subjective: Feeling well. No further chest pain. No palpitations. No shortness of breath. No diaphoresis. No lightheadedness or dizziness. No nausea or vomiting. Objective Vital Signs and I&Os Vital Signs Date Time Temp Pulse Resp B/P B/P Pulse O2 O2 Flow FiO2 Mean Ox Delivery Rate 01/02 803 97.9 68 18 128/72 95 Room Air 01/01 2330 97.6 72 18 130/66 96 Room Air 01/01 2155 98.3 63 18 140/70 01/01 1600 98.3 63 18 140/70 98 Room Air 01/01 1001 98.2 69 20 122/64 Intake & Output 01/02 0000 01/01 1600 01/01 0000 Intake Total 896 1370 945 2151 Output Total 600 300 650 700 Balance 296 755 -68 650 Intake, IV 96 135 482 750 Intake, Oral 800 920 100 600 Number 1 0 1 Bowel Movements Output, Urine 600 300 650 700 Physical Exam: Gen: NAD HEENT: normal Lungs: clear to auscultation, normal resp. effort Heart: RRR, S1, S2, no murmurs Abdomen: Soft, nontender, no masses Extremities: No clubbing, cyanosis, or edema. Neuro: Alert and oriented x 3, cranial nerves intact Current Medications: Current Medications Sig/Parviz Start time Last Medication Dose Route Stop Time Status Admin Acetaminophen 650 MG Q6P PRN 12/31 0545 AC PO Aspirin 81 MG DAILY 01/01 1000 AC 01/01 PO 1000 Atorvastatin Calcium 80 MG 1000 01/01 1000 AC 01/01 PO 1100 Atorvastatin Calcium 80 MG 1700 12/31 0645 DC 12/31 PO 0706 Heparin Sodium 2,244 UNIT ONCE ONE 01/02 0226 DC 01/02 (Porcine) IV 01/02 0227 0230 Heparin Sodium 25,000 UNIT Q24H 12/31 0530 AC 01/01 (Porcine) IV 0601 Sodium Chloride 500 ML Metoprolol Tartrate 12.5 MG BID 12/31 2200 AC 01/01 PO 2155 Multivitamins 1 TAB DAILY 12/31 1000 AC / PO 1000 Nitroglycerin 0.4 MG Q 5 MINUTES X 3 DO.. 12/31 0645 AC SL Ticagrelor 90 MG BID 01/01 1000 AC 05/07 PO 2154 Results Last 48 Hrs of Labs/Mics: Laboratory Tests 01/02/17 0820: APTT Pending 01/02/17 0614: Anion Gap 9, Estimated GFR > 60, Glucose 83, Calcium 8.9, Phosphorus 3.1, Magnesium 2.0, Total Bilirubin 0.8, AST 25, ALT 37, Albumin 3.4 L 01/02/17 0040: APTT 59 H 01/01/17 1245: APTT 70 H 01/01/17 0415: Anion Gap 8, Estimated GFR > 60, BUN/Creatinine Ratio 11.8, APTT 51 H, CBC w Diff NO MAN DIFF REQ, RBC 5.06, MCV 87.9, MCH 28.8, RDW 13.2, MPV 9.9, Gran % 65.8, Lymphocytes % 18.9 L, Monocytes % 9.9 H, Eosinophils % 4.3, Basophils % 1.1, Absolute Granulocytes 3.4, Absolute Lymphocytes 1.0 L, Absolute Monocytes 0.5, Absolute Eosinophils 0.2, Absolute Basophils 0.1, PUBS MCHC 32.8 L 12/31/16 2200: Troponin I 7.73 *H, APTT 45 H 12/31/16 1700: Troponin I 9.29 *H 12/31/16 1600: Troponin I Cancelled 12/31/16 1400: Troponin I Cancelled 12/31/16 1200: APTT 103 *H 12/31/16 1000: Troponin I 4.99 *H Microbiology 12/31 0850 UPPER RESP: Surveillance Culture - COMP 12/31 849 GI: Surveillance Culture - COMP Recent Imaging Studies: Echo: 1. Normal EF of 60% with impaired LV relaxation. 2. Mild left ventricular hypertrophy. 3. Mild mitral regurgitation. 4. Mild tricuspid regurgitation. 5. Mild aortic stensosis with mild aortic insufficiency. 6. Mild pulmonic insufficiency. Assessment/Plan Assessment/Plan Assessment: 1. Acute non-ST elevation myocardial infarction, now pain-free Plan: * Continue aspirin and Brilinta * Transferred to [facility] for cardiac catheterization with Dr. 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 Yes
[2017-01-02] MEDS ORDERED: HEPARIN-1/25000 UNI1 IV (08:41)
[2017-01-02 09:27] LABS: PTT > 120 SEC (25-37)
[2017-01-02 09:56] VITALS: BP 128/72
[2017-01-02] MEDS ORDERED: METOPROLOL TART25 M1 PO (10:29)
[2017-01-02] MEDS ORDERED: NITROSTAT0.3 M1 SL (10:29)
[2017-01-02] MEDS ORDERED: BRILINTA90 M1 PO (10:30)
== END 2017-01-02 11:10 | disposition short-term general hospital (02) | DRG 282 ==
LOC: ERH 03:42 → ERHI 06:32 → 1NO 06:32 → ENRESERV 06:44 → CRI 08:55 → 1NO 01-01 23:08 → ENPENDDIS 01-02 09:13 → 1NO 01-02 11:10
PROVIDERS: Internal Medicine; Pediatrics; ADMIT Internal Medicine Interventional Cardiology
DX: I21.4 Non-ST elevation (NSTEMI) myocardial infarction (principal); I08.3 Combined rheumatic disorders of mitral, aortic and tricuspid valves; I10 Essential (primary) hypertension; E78.5 Hyperlipidemia, unspecified; K21.9 Gastro-esophageal reflux disease without esophagitis; I25.10 Atherosclerotic heart disease of native coronary artery without angina pectoris
CPT/HCPCS: 1NSP; CCU; 36415; 82436; 93005; 93010; 93306; 96374; 96375; 99291; J1644; J2405; J3490